=== PATIENT | female | born 1985 | race African-American/Black ===

== ENCOUNTER 2016-10-27 00:25 | Emergency (ER) | payer MEDICAID, OTHER ==
--- NOTE | 2016-10-27 02:00 | ED Physician Documentation ---
History of Present Illness - Stated complaint Stated Complaint: PANIC ATTACK - Chief complaint Chief Complaint: MHE - History obtained from History obtained from: Patient - History of Present Illness Timing: How many hours ago (3) Pain level max: 0 Pain level now: 0 Improved by: no ameliorating factors Worsened by: no exacerbating factors - Additonal information Additional information: c/o few hours of feeling anxious, shaking; she describes her symptoms as "panic ". She has had similar episodes for past 2 days but not this severe or persistent. Review of Systems Constitutional: reports: Reviewed and negative Cardiac: reports: Reviewed and negative Respiratory: reports: Reviewed and negative GI: reports: Reviewed and negative Neurologic: reports: Reviewed and negative Psychiatric: reports: Depressed, Anxiety PD PAST MEDICAL HISTORY - Past Medical History Past Medical History: Yes Neuro: Headache/migraine Psych: Anxiety - Past Surgical History Past Surgical History: No - Present Medications Home Medications: Ambulatory Orders Medication Instructions Recorded Confirmed No Known Home Medications [No 10/27/16 10/27/16 Known Home Medications] - Allergies Allergies/Adverse Reactions: Allergies Allergy/AdvReac Type Severity Reaction Status Date / Time Penicillins Allergy Unknown unknown Verified 10/27/16 00:35 oxycodone HCl * Allergy Itching Verified 04/01/15 17:50 [From Percocet] - Social History Does the pt smoke?: Yes Smoking Status: Current every day smoker Does the pt drink ETOH?: No Does the pt have substance abuse?: No - Immunizations Immunizations are current?: No Immunizations: TDAP >10years/unknown - POLST Patient has POLST: No PD ED PE NORMAL - Vitals Vital signs reviewed: Yes - General General: Alert and oriented X 3, Well developed/nourished, Other (jittery, anxious; answers questions very quietly and with short answers. 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 PD ED PE EXPANDED - Psych Psych: Tearful, Withdrawn, Poor eye contact, Anxious Results - Vitals Vitals: Vital Signs - 24 hr 10/27/16 10/27/16 10/27/16 00:28 00:45 06:42 Temperature 36 C L Heart Rate 117 H 72 Respiratory 20 16 Rate Blood Pressure 150/110 H 105/68 O2 Saturation 100 100 10/27/16 11:54 Temperature Heart Rate 85 Respiratory 24 Rate Blood Pressure 136/93 H O2 Saturation 99 Oxygen O2 Source Room air - Labs Labs: Laboratory Tests 10/27/16 10/27/16 10/27/16 02:42 02:42 05:30 WBC 6.9 RBC 5.18 Hgb 13.3 Hct 39.0 MCV 75.3 L MCH 25.7 L MCHC 34.1 RDW 15.9 H Plt Count 147 MPV 9.3 Neut # 4.2 Lymph # 2.0 [place] # 0.7 Eos # 0.1 Baso # 0.0 Absolute Nucleated RBC 0.01 Nucleated RBCs 0.1 Sodium 138 Potassium 3.5 Chloride 102 Carbon Dioxide 26 Anion Gap 10.0 BUN 8 Creatinine 0.7 Estimated GFR (MDRD) 119 Glucose 94 Calcium 9.3 Urine Color Urine Clarity Urine pH Ur Specific [place] Urine Protein Urine Glucose (UA) Urine Ketones Urine Occult Blood Urine Nitrite Urine Bilirubin Urine Urobilinogen Ur Leukocyte Esterase Ur Microscopic Review Urine Culture Comments Urine HCG, Qual Urine Opiates Screen NEGATIVE Ur Oxycodone Screen NEGATIVE Urine Methadone Screen NEGATIVE Ur Propoxyphene Screen NEGATIVE Ur Barbiturates Screen NEGATIVE Ur Tricyclics Screen NEGATIVE Ur Phencyclidine Scrn NEGATIVE Ur Amphetamine Screen NEGATIVE U Methamphetamines Scrn NEGATIVE U Benzodiazepines Scrn NEGATIVE Urine Cocaine Screen NEGATIVE U Cannabinoids Screen POSITIVE H 10/27/16 05:30 WBC RBC Hgb Hct MCV MCH MCHC RDW Plt Count MPV Neut # Lymph # [place] # Eos # Baso # Absolute Nucleated RBC Nucleated RBCs Sodium Potassium Chloride Carbon Dioxide Anion Gap BUN Creatinine Estimated GFR (MDRD) Glucose Calcium Urine Color YELLOW Urine Clarity CLEAR Urine pH 5.5 Ur Specific [place] >=1.030 H Urine Protein NEGATIVE Urine Glucose (UA) NEGATIVE Urine Ketones 15 H Urine Occult Blood NEGATIVE Urine Nitrite NEGATIVE Urine Bilirubin NEGATIVE Urine Urobilinogen 0.2 (NORMAL) Ur Leukocyte Esterase NEGATIVE Ur Microscopic Review NOT INDICATED Urine Culture Comments NOT INDICATED Urine HCG, Qual NEGATIVE Urine Opiates Screen Ur Oxycodone Screen Urine Methadone Screen Ur Propoxyphene Screen Ur Barbiturates Screen Ur Tricyclics Screen Ur Phencyclidine Scrn Ur Amphetamine Screen U Methamphetamines Scrn U Benzodiazepines Scrn Urine Cocaine Screen U Cannabinoids Screen PD MEDICAL DECISION MAKING - ED course Complexity details: re-evaluated patient, considered differential, d/w patient ED course: Patient's chief concern is getting control over her panic and anxiety. Given 1mg PO ativan with modest results. I ordered a second dose, but by the time this was going to be given, patient was asleep. Before I gave her the first dose of ativan, we discussed disposition. I offered a social work consult, with the understanding that SW wouldn't be available until the morning. Patient was very tearful and afraid at the thought of going home at the time of this discussion, and she said she would like to speak to a socially responsible investment adviser before considering going home. Signed out to Dr. Cooley 7 AM 10/27/16 Departure - Departure Disposition: 01 Home, Self Care Clinical Impression: Anxiety Depression Qualifiers: Qualified Code(s): F32.9 - Major depressive disorder, single episode, unspecified Condition: Good Instructions: ED Depression, ED Panic Attack Follow-Up: [facility] [Provider Group] [facility] [Provider Group] Discharge Date/Time: 10/27/16 14:21
[2016-10-27] MEDS ORDERED: LORazepam 0.5 MG TABLET PO STA ×2 (02:18→03:18)
[2016-10-27] MEDS ORDERED: LORazepam 0.5 MG TABLET ONE ×2 (02:22→11:49)
[2016-10-27 02:54] LABS: BASOPHILS % (AUTO) 0.6 %; EOSINOPHILS # (AUTO) 0.1 10^3/uL (0.0-0.7); EOSINOPHILS % (AUTO) 0.8 %; HGB - HEMOGLOBIN 13.3 g/dL (12.0-16.0); LYMPHOCYTES % (AUTO) 28.2 %; MEAN CORPUSCULAR HEMOGLOBIN 25.7 pg (27.0-31.0); MEAN CORPUSCULAR HGB CONC 34.1 g/dL (32.0-36.0); MEAN CORPUSCULAR VOLUME 75.3 fL (81.0-99.0); MEAN PLATELET VOLUME 9.3 fL (7.9-10.8); MONOCYTES # (AUTO) 0.7 10^3/uL (0.0-1.0); MONOCYTES % (AUTO) 9.6 %; NEUTROPHILS # (AUTO) 4.2 10^3/uL (1.5-6.6); NEUTROPHILS % (AUTO) 60.8 %; NUCLEATED RED BLOOD CELLS AUTO 0.1 /100WBC; RED BLOOD COUNT 5.18 10^6/uL (4.20-5.40); RED CELL DISTRIBUTION WIDTH 15.9 % (12.0-15.0); UNCORRECTED WHITE BLOOD COUNT 6.9 x10^3/uL; WHITE BLOOD COUNT 6.9 x10^3/uL (4.8-10.8)
[2016-10-27 02:57] LABS: CALCIUM 9.3 mg/dL (8.5-10.3); CREATININE 0.7 mg/dL (0.4-1.0); POTASSIUM 3.5 mmol/L (3.5-5.0)
[2016-10-27 05:35] LABS: PH,URINE 5.5 PH (5.0-7.5)
[2016-10-27 05:40] LABS: BILIRUBIN,URINE NEGATIVE (NEGATIVE); HCG UR QUAL NEGATIVE; UA CHARGE (STRIP ONLY) YES; UR CULTURE IF IND NOT INDICATED
[2016-10-27 11:55] VITALS: BP 136/93
[2016-10-27] MEDS ORDERED: NICOTINE 21 MG PATCH TOP STA (12:16)
[2016-10-27] MEDS ORDERED: NICOTINE 21 MG PATCH TOP ONE (12:17)
--- NOTE | 2016-10-27 14:27 | ED Physician Documentation ---
ED Addendum - Addendum Addendum: 10/27/16 14:25 Patient remained calm and cooperative in the ED. She did start to have some increasing anxiety and given dose of Ativan. This improved her symptoms after 20 minutes or so. BOAZ talked with her and arranged follow up appt with ALEX[facility]. Patient discharged without problems. Disposition: discharged stable.
== END 2016-10-27 14:21 | disposition home or self-care (01) ==
LOC: ED 00:25
DX: F41.9 Anxiety disorder, unspecified (principal); F32.9 Major depressive disorder, single episode, unspecified; F17.200 Nicotine dependence, unspecified, uncomplicated
CPT/HCPCS: 36415; 80048; 80306; 81003; 81025; 85025; 99283; A9270; 81001; 87086

== ENCOUNTER 2016-12-02 21:11 | Emergency (ER) | payer MEDICAID ==
--- NOTE | 2016-12-02 21:29 | ED Physician Documentation ---
History of Present Illness - Stated complaint Stated Complaint: HEADACHE - Chief complaint Chief Complaint: General - History obtained from History obtained from: Patient - History of Present Illness Timing: Enter time (08:00), Today Pain level now: 8 (patient reports 8/10 BUTT to me (0/10 noted on triage note but this is not updated from previous visit)) Improved by: nothing Worsened by: lights, talking - Additonal information Additional information: c/o predominantly left-sided headache, retroorbital and bilateral occipital. She says this is typical for her migraine headaches, and she tends to get them when she is particularly anxious (which is chronic but worse past few days). She is out of the lorazepam I prescribed for her on previous ED visit (this was a month ago), and was going to probably be prescribed more with a recent PMD appointment but the appointment was cancelled by the office due to an emergency. Patient says she used to have relief of migraine headaches with Imitrex, but hasn't had or needed this rx for a few years and thus does not have any. Review of Systems Constitutional: reports: Sweats Eyes: reports: Photophobia. denies: Loss of vision, Decreased vision Ears: reports: Reviewed and negative GI: reports: Nausea (resolved). denies: Abdominal Pain, Vomiting Musculoskeletal: denies: Neck pain Neurologic: reports: Headache. 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 : None HEENT: None Psych: Anxiety Musculoskeletal: None Derm: None - Past Surgical History Past Surgical History: No - Present Medications Home Medications: Ambulatory Orders Medication Instructions Recorded Confirmed LORazepam [Ativan] 0.5 - 1 mg PO Q6H PRN #14 tablet 12/02/16 Sumatriptan Succinate [Imitrex] 50 mg PO DAILY PRN #14 tablet 12/02/16 - Allergies Allergies/Adverse Reactions: Allergies Allergy/AdvReac Type Severity Reaction Status Date / Time Penicillins Allergy Unknown unknown Verified 12/02/16 21:21 oxycodone HCl * Allergy Itching Verified 12/02/16 21:21 [From Percocet] - Social History Does the pt smoke?: Yes Smoking Status: Current every day smoker Does the pt drink ETOH?: No Does the pt have substance abuse?: No - Immunizations Immunizations are current?: No Immunizations: TDAP >10years/unknown - POLST Patient has POLST: No PD ED PE NORMAL - Vitals Vital signs reviewed: Yes - General General: Alert and oriented X 3, Well developed/nourished, Other (appears uncomfortable; lights are out in room per patient request and she is keeping her head under blankets and pillow) - HEENT HEENT: PERRL, EOMI, Moist mucous membranes - Neck Neck: Supple, no meningeal sign - Cardiac Cardiac: RRR, No murmur - Respiratory Respiratory: No respiratory distress, Clear bilaterally - Abdomen Abdomen: Soft, Non tender - Neuro Neuro: Alert and oriented X 3, 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, No motor deficit, No sensory deficit, Normal speech Results - Vitals Vitals: Vital Signs - 24 hr 12/02/16 12/02/16 21:15 23:21 Temperature 36.3 C L 36.9 C Heart Rate 108 H 60 Respiratory 17 17 Rate Blood Pressure 141/90 H 97/56 L O2 Saturation 98 100 Oxygen O2 Source Room air PD MEDICAL DECISION MAKING - ED course Complexity details: reviewed old records, re-evaluated patient, considered differential, d/w patient Departure - Departure Disposition: 01 Home, Self Care Clinical Impression: Anxiety Migraine Qualifiers: Migraine type: without aura Status migrainosus presence: without status migrainosus Intractability: not intractable Qualified Code(s): G43.009 - Migraine without aura, not intractable, without status migrainosus Condition: Good Instructions: ED Headache Migraine Follow-Up: [facility] [Provider Group] [facility] [Provider Group] Prescriptions: LORazepam [Ativan] 0.5 - 1 mg PO Q6H PRN #14 tablet PRN Reason: Anxiety Sumatriptan Succinate [Imitrex] 50 mg PO DAILY PRN #14 tablet PRN Reason: Migraine Discharge Date/Time: 12/02/16 23:30
[2016-12-02] MEDS ORDERED: SUMAtriptan 6 MG/0.5 ML VIAL SUBQ STA (21:44)
[2016-12-02] MEDS ORDERED: LORazepam 0.5 MG TABLET PO STA (21:44)
[2016-12-02 23:23] VITALS: BP 97/56
== END 2016-12-02 23:30 | disposition home or self-care (01) ==
LOC: ED 21:11
DX: G43.009 Migraine without aura, not intractable, without status migrainosus (principal); F41.9 Anxiety disorder, unspecified; F17.200 Nicotine dependence, unspecified, uncomplicated
CPT/HCPCS: 96372; 99283; 99284; A9270

== ENCOUNTER 2017-04-27 03:58 | Emergency (ER) | payer MEDICAID ==
[2017-04-27] MEDS ORDERED: oxyCOD/ACETAMIN 5 MG/325 MG TABLET PO STA (04:15)
[2017-04-27] MEDS ORDERED: diphenhydrAMINE 25 MG CAPSULE PO STA (04:17)
--- NOTE | 2017-04-27 04:21 | ED Physician Documentation ---
PD HPI HEENT - Stated complaint Stated Complaint: DENTAL PAIN - Chief complaint Chief Complaint: Heent - History obtained from History obtained from: Patient - History of Present Illness Timing - onset: How many days ago (4) Timing - details: Gradual onset, Still present Location: Tooth Associated symptoms: No: Facial swelling Similar symptoms before: Work up / diagnostics, Treatment Recently seen: Emergency Dept - Additional information Additional information: Patient is a 31 year old female with no significant past medical history who is presenting to the emergency department for dental pain. patient states that she has a cracked tooth and has dental follow up on friday but the pain won't go away. Patient went to another ER and a nerve block was performed which helped but then the pain came back. Patient states that the pain radiates back behind her eye and she is unable to sleep. Review of Systems Constitutional: denies: Fever, Chills Eyes: reports: Photophobia Ears: denies: Ear pain, Drainage/discharge Nose: reports: Reviewed and negative Throat: reports: Dental pain / toothache Cardiac: reports: Reviewed and negative Respiratory: reports: Reviewed and negative GI: denies: Nausea, Vomiting : reports: Reviewed and negative Musculoskeletal: denies: Neck pain Neurologic: reports: Headache. 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 : None HEENT: None Psych: Anxiety Musculoskeletal: None Derm: None - Past Surgical History Past Surgical History: No - Present Medications Home Medications: Ambulatory Orders Medication Instructions Recorded Confirmed Loratadine 10 mg PO DAILY 04/27/17 04/27/17 Norethindrone AC-Eth Estradiol 1 tab PO DAILY 04/27/17 04/27/17 [Microgestin 21 1-20 Tablet] Prazosin [Minipress] 1 mg PO DAILY 04/27/17 04/27/17 hydrOXYzine pamoate [Hydroxyzine 25 mg PO TID 04/27/17 04/27/17 Pamoate] - Allergies Allergies/Adverse Reactions: Allergies Allergy/AdvReac Type Severity Reaction Status Date / Time Penicillins Allergy Unknown unknown Verified 04/27/17 04:09 oxycodone HCl * Allergy Itching Verified 04/27/17 04:09 [From Percocet] - Social History Does the pt smoke?: Yes Smoking Status: Current every day smoker Does the pt drink ETOH?: No Does the pt have substance abuse?: No - Immunizations Immunizations are current?: No Immunizations: TDAP >10years/unknown - POLST Patient has POLST: No PD ED PE NORMAL - HEENT HEENT: Atraumatic, PERRL, Moist mucous membranes - Neck Neck: Supple, no meningeal sign - Cardiac Cardiac: RRR, No murmur - Respiratory Respiratory: No respiratory distress - Abdomen Abdomen: Non distended - Derm Derm: Normal color - Extremities Extremities: No deformity, No edema PD ED PE EXPANDED - General General: Alert, In Pain - HEENT HEENT: Dental decay, Dental TTP (cracked tooth behind a filling on left posterior molar). No: Dental abscess, Dry socket Results - Vitals Vitals: Vital Signs - 24 hr 04/27/17 04:06 Temperature 36.6 C Heart Rate 67 Respiratory 20 Rate Blood Pressure 137/101 H O2 Saturation 98 Oxygen O2 Source Room air PD MEDICAL DECISION MAKING - ED course Complexity details: reviewed old records, reviewed results, re-evaluated patient , considered differential, d/w patient ED course: Patient was seen and examined at bedside. patient did have a broken tooth but no sign of abscess or fluid collection. Patient was treated with one percocet and bendaryl and given lidocaine lolipop. Patient was able to go home with her friend. Patient was stable for discharge with outpatient follow up. Departure - Departure Disposition: Home, Self Care Clinical Impression: Pain due to dental caries Condition: Good Instructions: ED Tooth Pain Follow-Up: primary,dentist [Other] - Tomorrow Comments: Your symptoms are likely being caused by an exposed root. You should take ibuprofen 600mg and tylenol 1000mg for pain. You should hot and cold foods. It is important that you go to your appointment on friday for further evaluation and care.
[2017-04-27 04:49] VITALS: BP 122/68
== END 2017-04-27 04:49 | disposition home or self-care (01) ==
LOC: ED 03:58
DX: K02.9 Dental caries, unspecified (principal); K08.89 Other specified disorders of teeth and supporting structures; F17.200 Nicotine dependence, unspecified, uncomplicated
CPT/HCPCS: 99283; A9270

== ENCOUNTER 2018-05-06 03:55 | Emergency (ER) | payer MEDICAID ==
--- NOTE | 2018-05-06 04:21 | ED Physician Documentation ---
PD HPI MHE - Stated complaint Stated Complaint: UNABLE TO SLEEP - Chief complaint Chief Complaint: MHE - History obtained from History obtained from: Patient - History of Present Illness Primary symptom: Anxiety, Other (insomnia) Timing - onset: How many days ago (She states she has had insomnia and unable to sleep for at least 4 days. Her thought process is a bit scattered and she does seem to have blank ended sentences at times. It sounds like she used to get counseling through [facility] and had been perhaps on some medication for anxiety or depression. She states she has not been on medicines for a couple of years. She has been having some problems more recently and had stopped into [facility] yesterday for an appointment and was given 1 for this morning. She was to return this morning for the next day appointment. She came here because she was feeling tired and unable to sleep. She denies any self-harm ideation. She denies any drug abuse.) Contributing factors: Other (trouble sleeping. 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 No: Substance abuse - ETOH, Substance abuse - drugs Recently seen: Not recently seen Review of Systems Constitutional: denies: Fever Nose: denies: Rhinorrhea / runny nose, Congestion Throat: denies: Sore throat Respiratory: denies: Cough GI: denies: Vomiting, Diarrhea Neurologic: denies: Generalized weakness, Headache, Head injury Psychiatric: reports: Anxiety, Insomnia. denies: Suicidal, Hallucinations PD PAST MEDICAL HISTORY - Past Medical History Cardiovascular: None Respiratory: None Endocrine/Autoimmune: None GI: None PHYSICIAN LOCUMS URGENT CARE: None : None HEENT: None Psych: Anxiety Musculoskeletal: None Derm: None - Past Surgical History Past Surgical History: No - Present Medications Home Medications: Ambulatory Orders Medication Instructions Recorded Confirmed Loratadine 10 mg PO DAILY 04/27/17 05/06/18 Norethindrone AC-Eth Estradiol 1 tab PO DAILY 04/27/17 05/06/18 [Microgestin 21 1-20 Tablet] - Allergies Allergies/Adverse Reactions: Allergies Allergy/AdvReac Type Severity Reaction Status Date / Time Penicillins Allergy Unknown unknown Verified 05/06/18 04:07 oxycodone HCl * Allergy Itching Verified 05/06/18 04:07 [From Percocet] - Social History Does the pt smoke?: Yes Smoking Status: Current every day smoker Does the pt drink ETOH?: No Does the pt have substance abuse?: No - Immunizations Immunizations are current?: No Immunizations: TDAP >10years/unknown - POLST Patient has POLST: No PD ED PE NORMAL - Vitals Vital signs reviewed: Yes - General General: No acute distress, Well developed/nourished. No: Alert and oriented X 3 (She is oriented to person and place. She does not quite sure initially which day of the week it was but then was able to figure out it was Friday. She does know she has an appointment today at [facility] sometime this morning. She is having a slow and sluggish answering of questions with pauses at times. 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, No motor deficit, No sensory deficit, Normal speech Results - Vitals Vitals: Vital Signs - 24 hr 05/06/18 05/06/18 05/06/18 03:57 04:06 05:38 Temperature 36.0 C L Heart Rate 97 63 74 Respiratory 18 18 16 Rate Blood Pressure 161/103 H 139/93 H 127/106 H O2 Saturation 100 99 100 05/06/18 05/06/18 06:16 06:50 Temperature 36.4 C L Heart Rate 53 L 63 Respiratory 16 18 Rate Blood Pressure 120/81 H 116/72 O2 Saturation 98 99 Oxygen O2 Source Room air - Labs Labs: Laboratory Tests 05/06/18 05/06/18 05/06/18 04:45 04:45 04:45 WBC 7.8 RBC 4.84 Hgb 12.3 Hct 36.8 L MCV 76.1 L MCH 25.4 L MCHC 33.4 RDW 16.1 H Plt Count 141 MPV 10.0 Neut # (Auto) 5.5 Lymph # (Auto) 1.7 [place] # (Auto) 0.6 Eos # (Auto) 0.0 Baso # (Auto) 0.1 Absolute Nucleated RBC 0.01 Nucleated RBC % 0.1 Sodium 135 Potassium 3.3 L Chloride 99 L Carbon Dioxide 25 Anion Gap 11.0 BUN 10 Creatinine 0.7 Estimated GFR (MDRD) 118 Glucose 102 H Calcium 9.1 Total Bilirubin 1.1 H AST 23 ALT 15 Alkaline Phosphatase 54 Total Protein 7.9 Albumin 4.3 Globulin 3.6 Albumin/Globulin Ratio 1.2 Lipase 26 TSH 3.07 Urine Color Urine Clarity Urine pH Ur Specific [place] Urine Protein Urine Glucose (UA) Urine Ketones Urine Occult Blood Urine Nitrite Urine Bilirubin Urine Urobilinogen Ur Leukocyte Esterase Urine RBC Urine WBC Ur Squamous Epith Cells Urine Bacteria Ur Microscopic Review Urine Culture Comments Urine HCG, Qual Salicylates < 6.0 Urine Opiates Screen Ur Oxycodone Screen Urine Methadone Screen Ur Propoxyphene Screen Acetaminophen < 10 L Ur Barbiturates Screen Ur Tricyclics Screen Ur Phencyclidine Scrn Ur Amphetamine Screen U Methamphetamines Scrn U Benzodiazepines Scrn Urine Cocaine Screen U Cannabinoids Screen Ethyl Alcohol < 5.0 05/06/18 05/06/18 04:47 04:47 WBC RBC Hgb Hct MCV MCH MCHC RDW Plt Count MPV Neut # (Auto) Lymph # (Auto) [place] # (Auto) Eos # (Auto) Baso # (Auto) Absolute Nucleated RBC Nucleated RBC % Sodium Potassium Chloride Carbon Dioxide Anion Gap BUN Creatinine Estimated GFR (MDRD) Glucose Calcium Total Bilirubin AST ALT Alkaline Phosphatase Total Protein Albumin Globulin Albumin/Globulin Ratio Lipase TSH Urine Color DARK YELLOW Urine Clarity HAZY Urine pH 5.5 Ur Specific [place] 1.025 Urine Protein NEGATIVE Urine Glucose (UA) NEGATIVE Urine Ketones 40 H Urine Occult Blood MODERATE H Urine Nitrite NEGATIVE Urine Bilirubin NEGATIVE Urine Urobilinogen 1 (NORMAL) Ur Leukocyte Esterase NEGATIVE Urine RBC 6-10 H Urine WBC 0-3 Ur Squamous Epith Cells NONE SEEN Urine Bacteria None Seen Ur Microscopic Review INDICATED Urine Culture Comments NOT INDICATED Urine HCG, Qual NEGATIVE Salicylates Urine Opiates Screen NEGATIVE Ur Oxycodone Screen NEGATIVE Urine Methadone Screen NEGATIVE Ur Propoxyphene Screen NEGATIVE Acetaminophen Ur Barbiturates Screen NEGATIVE Ur Tricyclics Screen NEGATIVE Ur Phencyclidine Scrn NEGATIVE Ur Amphetamine Screen NEGATIVE U Methamphetamines Scrn NEGATIVE U Benzodiazepines Scrn NEGATIVE Urine Cocaine Screen NEGATIVE U Cannabinoids Screen POSITIVE H Ethyl Alcohol PD MEDICAL DECISION MAKING - ED course Complexity details: considered differential (She does seem like she may just be extremely tired and having not slept for 4 days. She is cognitively stuttering in her thought process and a bit tangential. She is not pressured and does not have any hallucinations or delusions. At this point she could use of your sleep I think and so was given some small dose of olanzapine to help with that. She has slept for a few hours now at this point. Will have social work consult with regarding counseling care. They can also verify when the patient is supposed to go to [facility] and for what purpose.), d/w patient Departure - Departure Clinical Impression: Disorganized thought process, Anxiety Insomnia Qualifiers: Insomnia type: unspecified Qualified Code(s): G47.00 - Insomnia, unspecified Condition: Stable Record reviewed to determine appropriate education?: Yes
[2018-05-06] MEDS ORDERED: OLANZapine ODT 5 MG TABLET TL ONE (04:41)
[2018-05-06 04:57] LABS: BASOPHILS # (AUTO) 0.1 10^3/uL (0.0-0.1); BASOPHILS % (AUTO) 0.8 %; EOSINOPHILS % (AUTO) 0.5 %; HGB - HEMOGLOBIN 12.3 g/dL (12.0-16.0); LYMPHOCYTES # (AUTO) 1.7 10^3/uL (1.5-3.5); LYMPHOCYTES % (AUTO) 21.5 %; MEAN CORPUSCULAR HEMOGLOBIN 25.4 pg (27.0-31.0); MEAN CORPUSCULAR HGB CONC 33.4 g/dL (32.0-36.0); MEAN CORPUSCULAR VOLUME 76.1 fL (81.0-99.0); MONOCYTES # (AUTO) 0.6 10^3/uL (0.0-1.0); MONOCYTES % (AUTO) 7.4 %; NEUTROPHILS # (AUTO) 5.5 10^3/uL (1.5-6.6); NEUTROPHILS % (AUTO) 69.8 %; PLT - PLATELET COUNT 141 10^3/uL (130-450); RED BLOOD COUNT 4.84 10^6/uL (4.20-5.40); RED CELL DISTRIBUTION WIDTH 16.1 % (12.0-15.0); WHITE BLOOD COUNT 7.8 x10^3/uL (4.8-10.8)
[2018-05-06 05:02] LABS: MUDS CUTOFF CONCENTRATIONS CUTOFF CONC BELOW:
[2018-05-06 05:07] LABS: GLUCOSE, URINE (UA) NEGATIVE (NEGATIVE); KETONES,URINE (UA) 40 mg/dL (NEGATIVE); LEUKOCYTE ESTERASE, URINE NEGATIVE (NEGATIVE); NITRITE,URINE NEGATIVE (NEGATIVE); OCCULT BLOOD,URINE MODERATE (NEGATIVE); PH,URINE 5.5 PH (5.0-7.5); PROTEIN,URINE NEGATIVE (NEGATIVE); UROBILINOGEN,URINE 1 (NORMAL) E.U./dL (NORMAL)
[2018-05-06 05:12] LABS: ACETAMINOPHEN < 10 ug/mL (10-30); ALBUMIN 4.3 g/dL (3.2-5.5); ALBUMIN/GLOBULIN RATIO 1.2 (1.0-2.2); ALKALINE PHOSPHATASE 54 IU/L (42-121); ALT ALANINE AMINOTRANSFERASE 15 IU/L (10-60); AST ASPARTATE AMINOTRANSFERASE 23 IU/L (10-42); BILIRUBIN,TOTAL 1.1 mg/dL (0.2-1.0); BUN - BLOOD UREA NITROGEN 10 mg/dL (6-20); CALCIUM 9.1 mg/dL (8.5-10.3); CARBON DIOXIDE - CO2 25 mmol/L (21-32); CHLORIDE 99 mmol/L (101-111); CREATININE 0.7 mg/dL (0.4-1.0); GFR - MDRD 118 (>89); GLUCOSE 102 mg/dL (70-100); LIPASE 26 U/L (22-51); SALICYLATE < 6.0 mg/dL; SODIUM 135 mmol/L (135-145); TOTAL PROTEIN 7.9 g/dL (6.7-8.2)
[2018-05-06 05:23] LABS: CLARITY,URINE HAZY (CLEAR)
[2018-05-06 05:24] LABS: BACTERIA,URINE None Seen /HPF (None Seen); BILIRUBIN,URINE NEGATIVE (NEGATIVE); HCG UR QUAL NEGATIVE; ICTOTEST,URINE NEGATIVE; SQUAMOUS EPITHELIAL CELL,UR NONE SEEN (<= Few)
[2018-05-06 05:25] LABS: AMPHETAMINE SCREEN,URINE NEGATIVE (NEGATIVE); BENZODIAZEPINES SCREEN, URINE NEGATIVE (NEGATIVE); COCAINE SCREEN URINE NEGATIVE (NEGATIVE); METHADONE SCREEN, URINE NEGATIVE (NEGATIVE); METHAMPHETAMINES SCREEN, URINE NEGATIVE (NEGATIVE); OPIATE SCREEN, URINE NEGATIVE (NEGATIVE); OXYCODONE SCREEN, URINE NEGATIVE (NEGATIVE); PROPOXYPHENE SCREEN, URINE NEGATIVE (NEGATIVE); TRICYCLIC ANTIDEPRESSANT,URINE NEGATIVE (NEGATIVE)
[2018-05-06] MEDS ORDERED: LORazepam 2 MG/ML VIAL IM STA (05:39)
--- NOTE | 2018-05-06 08:56 | ED Physician Documentation ---
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 : None HEENT: None Psych: Anxiety Musculoskeletal: None Derm: None - Past Surgical History Past Surgical History: No - Present Medications Home Medications: Ambulatory Orders Medication Instructions Recorded Confirmed Loratadine 10 mg PO DAILY 04/27/17 05/06/18 Norethindrone AC-Eth Estradiol 1 tab PO DAILY 04/27/17 05/06/18 [Microgestin 21 1-20 Tablet] - Allergies Allergies/Adverse Reactions: Allergies Allergy/AdvReac Type Severity Reaction Status Date / Time Penicillins Allergy Unknown unknown Verified 05/06/18 04:07 oxycodone HCl * Allergy Itching Verified 05/06/18 04:07 [From Percocet] - Social History Does the pt smoke?: Yes Smoking Status: Current every day smoker Does the pt drink ETOH?: No Does the pt have substance abuse?: No - Immunizations Immunizations are current?: No Immunizations: TDAP >10years/unknown - POLST Patient has POLST: No Results - Vitals Vitals: Oxygen O2 Source Room air - Labs Labs: Laboratory Tests 05/06/18 05/06/18 05/06/18 04:45 04:45 04:45 WBC 7.8 RBC 4.84 Hgb 12.3 Hct 36.8 L MCV 76.1 L MCH 25.4 L MCHC 33.4 RDW 16.1 H Plt Count 141 MPV 10.0 Neut # (Auto) 5.5 Lymph # (Auto) 1.7 [place] # (Auto) 0.6 Eos # (Auto) 0.0 Baso # (Auto) 0.1 Absolute Nucleated RBC 0.01 Nucleated RBC % 0.1 Sodium 135 Potassium 3.3 L Chloride 99 L Carbon Dioxide 25 Anion Gap 11.0 BUN 10 Creatinine 0.7 Estimated GFR (MDRD) 118 Glucose 102 H Calcium 9.1 Total Bilirubin 1.1 H AST 23 ALT 15 Alkaline Phosphatase 54 Total Protein 7.9 Albumin 4.3 Globulin 3.6 Albumin/Globulin Ratio 1.2 Lipase 26 TSH 3.07 Urine Color Urine Clarity Urine pH Ur Specific [place] Urine Protein Urine Glucose (UA) Urine Ketones Urine Occult Blood Urine Nitrite Urine Bilirubin Urine Urobilinogen Ur Leukocyte Esterase Urine RBC Urine WBC Ur Squamous Epith Cells Urine Bacteria Ur Microscopic Review Urine Culture Comments Urine HCG, Qual Salicylates < 6.0 Urine Opiates Screen Ur Oxycodone Screen Urine Methadone Screen Ur Propoxyphene Screen Acetaminophen < 10 L Ur Barbiturates Screen Ur Tricyclics Screen Ur Phencyclidine Scrn Ur Amphetamine Screen U Methamphetamines Scrn U Benzodiazepines Scrn Urine Cocaine Screen U Cannabinoids Screen Ethyl Alcohol < 5.0 05/06/18 05/06/18 04:47 04:47 WBC RBC Hgb Hct MCV MCH MCHC RDW Plt Count MPV Neut # (Auto) Lymph # (Auto) [place] # (Auto) Eos # (Auto) Baso # (Auto) Absolute Nucleated RBC Nucleated RBC % Sodium Potassium Chloride Carbon Dioxide Anion Gap BUN Creatinine Estimated GFR (MDRD) Glucose Calcium Total Bilirubin AST ALT Alkaline Phosphatase Total Protein Albumin Globulin Albumin/Globulin Ratio Lipase TSH Urine Color DARK YELLOW Urine Clarity HAZY Urine pH 5.5 Ur Specific [place] 1.025 Urine Protein NEGATIVE Urine Glucose (UA) NEGATIVE Urine Ketones 40 H Urine Occult Blood MODERATE H Urine Nitrite NEGATIVE Urine Bilirubin NEGATIVE Urine Urobilinogen 1 (NORMAL) Ur Leukocyte Esterase NEGATIVE Urine RBC 6-10 H Urine WBC 0-3 Ur Squamous Epith Cells NONE SEEN Urine Bacteria None Seen Ur Microscopic Review INDICATED Urine Culture Comments NOT INDICATED Urine HCG, Qual NEGATIVE Salicylates Urine Opiates Screen NEGATIVE Ur Oxycodone Screen NEGATIVE Urine Methadone Screen NEGATIVE Ur Propoxyphene Screen NEGATIVE Acetaminophen Ur Barbiturates Screen NEGATIVE Ur Tricyclics Screen NEGATIVE Ur Phencyclidine Scrn NEGATIVE Ur Amphetamine Screen NEGATIVE U Methamphetamines Scrn NEGATIVE U Benzodiazepines Scrn NEGATIVE Urine Cocaine Screen NEGATIVE U Cannabinoids Screen POSITIVE H Ethyl Alcohol PD MEDICAL DECISION MAKING - ED course ED course: At change of shift, the patient's care was turned over to [place] pending evaluation by the certified medical assistant. She remained calm and cooperative during the remainder of her time in the emergency department. The certified medical assistant evaluated her, and advised that she should follow up for her appointment at [facility] this morning. Departure - Departure Disposition: 01 Home, Self Care Clinical Impression: Disorganized thought process, Anxiety Insomnia Qualifiers: Insomnia type: unspecified Qualified Code(s): G47.00 - Insomnia, unspecified Condition: Stable Instructions: ED Stress React Follow-Up: [facility] [Provider Group] Comments: Follow-up at [facility] this morning as scheduled. Return to the emerge department if you develop worsening symptoms. Discharge Date/Time: 05/06/18 09:02
[2018-05-06 09:01] VITALS: BP 118/74
== END 2018-05-06 09:02 | disposition home or self-care (01) ==
LOC: ED 03:55
DX: G47.00 Insomnia, unspecified (principal); F41.9 Anxiety disorder, unspecified; F17.200 Nicotine dependence, unspecified, uncomplicated
CPT/HCPCS: 36415; 80053; 80306; 80307; 80320; 80329; 81001; 81025; 83690; 84443; 85025; 99283; 99284; A9270; 81003; 87086

== ENCOUNTER 2018-05-13 14:35 | Emergency (ER) | payer MEDICAID ==
--- NOTE | 2018-05-13 15:56 | ED Physician Documentation ---
PD HPI MHE - Stated complaint Stated Complaint: SENT BY DR/MED REFILL - Chief complaint Chief Complaint: MHE - History obtained from History obtained from: Patient - History of Present Illness Primary symptom: Anxiety, Out of meds, Other (insomnia). No: Suicidal ideation Timing - onset: How many weeks ago (she had had insomnia and poor thought process for weeks. Was on meds in the past and not sure names. Has been seen [facility] but had not gotten into prescribing provider due to weather and staff illnesses. Seen today at [facility] by counselor and referred to ER to "get meds to help with symptoms" until her appt on 05/22 with prescribing provider.) Contributing factors: No: Substance abuse - ETOH, Substance abuse - drugs Similar symptoms before: No diagnosis (Not sure of Dx (she is not sure and I don't have records), had been on anxiolytics in the past, sounds like Xanax, and had confusion side effects to ? Buspirone, per patient. She had been in ER with similar symptoms few weeks ago and gotten Zyprexa and Ativan and she relaxed and slept several hours pending being able to go over to [facility]. Unfortunately, did not get appt with provider at that time and only intake, and now just saw counselor today.) Recently seen: Clinic ([facility]) Review of Systems Constitutional: denies: Fever, Chills Nose: denies: Rhinorrhea / runny nose, Congestion Throat: denies: Sore throat Cardiac: denies: Chest pain / pressure Respiratory: denies: Dyspnea, Cough GI: denies: Vomiting, Diarrhea Psychiatric: reports: Anxiety, Insomnia. 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 : None HEENT: None Psych: Anxiety Musculoskeletal: None Derm: None - Past Surgical History Past Surgical History: No - Present Medications Home Medications: Ambulatory Orders Medication Instructions Recorded Confirmed Loratadine 10 mg PO DAILY 04/27/17 05/06/18 Norethindrone AC-Eth Estradiol 1 tab PO DAILY 04/27/17 05/06/18 [Microgestin 21 1-20 Tablet] LORazepam [Ativan] 1 mg PO QPM PRN #15 tablet 05/13/18 OLANZapine [Zyprexa] 5 mg PO DAILY #14 tablet 05/13/18 - Allergies Allergies/Adverse Reactions: Allergies Allergy/AdvReac Type Severity Reaction Status Date / Time Penicillins Allergy Unknown unknown Verified 05/13/18 14:51 oxycodone HCl * Allergy Itching Verified 05/13/18 14:51 [From Percocet] - Social History Does the pt smoke?: Yes Smoking Status: Current every day smoker Does the pt drink ETOH?: No Does the pt have substance abuse?: No - Immunizations Immunizations are current?: No Immunizations: TDAP >10years/unknown - POLST Patient has POLST: No PD ED PE NORMAL - Vitals Vital signs reviewed: Yes - General General: Alert and oriented X 3, No acute distress, Well developed/nourished - Neck Neck: Supple, no meningeal sign, No adenopathy, Thyroid normal - Cardiac Cardiac: RRR, No murmur - Respiratory Respiratory: Clear bilaterally - Derm Derm: Normal color, Warm and dry - Neuro Neuro: Alert and oriented X 3, No motor deficit, Normal speech - Psych Psych: Normal mood. No: Normal affect (somewhat tangential. Seems to want structured instructions and explanation. She writes down some of my suggestions, and puts on her calendar the exact time she will take her PO med for sleep to night as we talk about it. She denies self harm ideation nor depression per se. ) Results - Vitals Vitals: Vital Signs - 24 hr 05/13/18 05/13/18 14:44 16:58 Temperature 36.0 C L Heart Rate 92 80 Respiratory 12 15 Rate Blood Pressure 144/104 H 139/103 H O2 Saturation 100 99 Oxygen O2 Source Room air - Labs Labs: Laboratory Tests 05/13/18 05/13/18 16:02 16:02 Urine Color YELLOW Urine Clarity CLEAR Urine pH 5.0 Ur Specific [place] >=1.030 H Urine Protein NEGATIVE Urine Glucose (UA) NEGATIVE Urine Ketones TRACE Urine Occult Blood NEGATIVE Urine Nitrite NEGATIVE Urine Bilirubin NEGATIVE Urine Urobilinogen 0.2 (NORMAL) Ur Leukocyte Esterase NEGATIVE Ur Microscopic Review NOT INDICATED Urine Culture Comments NOT INDICATED Urine HCG, Qual NEGATIVE Urine Opiates Screen NEGATIVE Ur Oxycodone Screen NEGATIVE Urine Methadone Screen NEGATIVE Ur Propoxyphene Screen NEGATIVE Ur Barbiturates Screen NEGATIVE Ur Tricyclics Screen NEGATIVE Ur Phencyclidine Scrn NEGATIVE Ur Amphetamine Screen NEGATIVE U Methamphetamines Scrn NEGATIVE U Benzodiazepines Scrn NEGATIVE Urine Cocaine Screen NEGATIVE U Cannabinoids Screen POSITIVE H PD MEDICAL DECISION MAKING - ED course Complexity details: considered differential (hard to tell if just sleep deprived and a bit tangential. Not really manic per se. Seems elements of OCD and also seems need for concrete instructions. She had had good relaxation on thoughts and then sleep with Zyprexa on recent ER visit, when here during night and rested until appt with [facility] in the morning. Can try that med for anxiety during day and then Ativan for sleep, for short term, until her appt on . ), d/w patient Departure - Departure Disposition: Home, Self Care Clinical Impression: Anxiety Insomnia Qualifiers: Insomnia type: unspecified Qualified Code(s): G47.00 - Insomnia, unspecified Condition: Stable Record reviewed to determine appropriate education?: Yes Follow-Up: Venancio Byrnes MD [Primary Care Provider] - [facility] [Provider Group] Prescriptions: LORazepam [Ativan] 1 mg PO QPM PRN #15 tablet PRN Reason: Insomnia OLANZapine [Zyprexa] 5 mg PO DAILY #14 tablet Comments: Take the olanzapine in the morning to help generally with a anxiety and less racing ideas through the day. You can add Lorazepam at night but a half an hour before you want to be asleep (about 930). Use these daily until your appointment on the . At that point your provider at that point may opt for different medications or may continue with some of these at their discretion. Discharge Date/Time: 05/13/18 17:47
[2018-05-13 16:09] LABS: MUDS CUTOFF CONCENTRATIONS CUTOFF CONC BELOW:
[2018-05-13 16:14] LABS: BILIRUBIN,URINE NEGATIVE (NEGATIVE); CLARITY,URINE CLEAR (CLEAR); GLUCOSE, URINE (UA) NEGATIVE (NEGATIVE); KETONES,URINE (UA) TRACE mg/dL (NEGATIVE); LEUKOCYTE ESTERASE, URINE NEGATIVE (NEGATIVE); NITRITE,URINE NEGATIVE (NEGATIVE); OCCULT BLOOD,URINE NEGATIVE (NEGATIVE); PROTEIN,URINE NEGATIVE (NEGATIVE); UROBILINOGEN,URINE 0.2 (NORMAL) E.U./dL (NORMAL)
[2018-05-13 16:15] LABS: HCG UR QUAL NEGATIVE
[2018-05-13 16:22] LABS: AMPHETAMINE SCREEN,URINE NEGATIVE (NEGATIVE); COCAINE SCREEN URINE NEGATIVE (NEGATIVE); METHAMPHETAMINES SCREEN, URINE NEGATIVE (NEGATIVE); OPIATE SCREEN, URINE NEGATIVE (NEGATIVE)
[2018-05-13 16:23] LABS: BENZODIAZEPINES SCREEN, URINE NEGATIVE (NEGATIVE); METHADONE SCREEN, URINE NEGATIVE (NEGATIVE); OXYCODONE SCREEN, URINE NEGATIVE (NEGATIVE); PROPOXYPHENE SCREEN, URINE NEGATIVE (NEGATIVE); TRICYCLIC ANTIDEPRESSANT,URINE NEGATIVE (NEGATIVE)
[2018-05-13] MEDS: OLANZapine ODT 5 MG TABLET TL ONE (16:55)
[2018-05-13 16:58] VITALS: BP 139/103
== END 2018-05-13 17:47 | disposition home or self-care (01) ==
LOC: ED 14:35
DX: F41.9 Anxiety disorder, unspecified (principal); G47.00 Insomnia, unspecified; F17.200 Nicotine dependence, unspecified, uncomplicated
CPT/HCPCS: 80306; 81001; 81003; 81025; 87086; 99282; 99283